=== PATIENT | male | born 2000 | race Caucasian/White ===

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

== ENCOUNTER 2020-08-03 17:51 | Emergency (ER) | payer OTHER ==
[2020-08-03 18:10] VITALS: BP 130/69; PULSE 86; TEMP 97.6; BMI 43.3
== END 2020-08-03 19:45 | disposition home or self-care (01) ==
LOC: JERFT 17:51
DX: S93.402A Sprain of unspecified ligament of left ankle, initial encounter (principal)
CPT/HCPCS: 73610-TC-LT-FY; 99284-25

== ENCOUNTER 2020-11-22 12:24 | Emergency (ER) | payer OTHER ==
[2020-11-22 12:28] VITALS: BP 139/73; PULSE 77; TEMP 97.7; BMI 38.4
== END 2020-11-22 12:58 | disposition home or self-care (01) ==
LOC: JER 12:24
DX: R05 Cough (principal); Z11.52 Encounter for screening for COVID-19
CPT/HCPCS: 87804; 99283-25; C9803; U0003

== ENCOUNTER 2020-11-29 03:08 | Emergency (ER) | payer OTHER ==
[2020-11-29 03:19] VITALS: BP 129/75; PULSE 90; BMI 38.5
[2020-11-29 04:56] LABS: BASO % 0.6 % (0-2.0); EOS % 2.9 % (0-4.5); HEMATOCRIT 44.3 % (35.4-49); HEMOGLOBIN 15.4 GM/dL (11.7-16.9); LYMPH % 20.7 % (8-40); MCH 30.6 pg (25.7-33.7); MCHC 34.7 g/dl (32.0-35.9); MEAN CELL VOLUME 88.2 fl (80-96); MEAN PLT VOLUME 9.9 fl (7.5-11.1); MONO % 7.1 % (3.8-10.2); NEUT % 68.7 % (42.8-82.8); PLATELET COUNT 229 K/MM3 (134-434); RBC 5.02 M/mm3 (4.00-5.60); WHITE BLOOD COUNT 10.3 K/mm3 (4.0-10.0)
[2020-11-29 05:49] LABS: CHLORIDE 105 mmol/L (98-107); POTASSIUM 3.6 mmol/L (3.5-5.1); SODIUM 138 mmol/L (136-145)
[2020-11-29 05:50] LABS: ALBUMIN 3.8 g/dl (3.4-5.0); ANION GAP 8 MMOL/L (8-16); BLOOD UREA NITROGEN 12.5 mg/dL (7-18); CO2 25 mmol/L (21-32); GLUCOSE,RANDOM 105 mg/dL (74-106)
[2020-11-29 05:54] LABS: SGOT/AST 21 U/L (15-37); SGPT/ALT 47 U/L (13-61)
[2020-11-29 05:55] LABS: BILIRUBIN,TOTAL 0.7 mg/dL (0.2-1); CREATININE 1.1 mg/dL (0.55-1.3); TOT PROT 7.3 g/dl (6.4-8.2)
[2020-11-29 05:57] LABS: ALK PHOS 131 U/L (45-117)
== END 2020-11-29 06:22 | disposition home or self-care (01) ==
LOC: JER 03:08
DX: R07.9 Chest pain, unspecified (principal)
CPT/HCPCS: 36415; 71046-TC-FY; 80053; 84484; 85025; 93005; 93010; 99285-25

== ENCOUNTER 2021-04-01 17:56 | Emergency (ER) | payer OTHER ==
[2021-04-01 18:09] VITALS: TEMP 98.8; BMI 38.4
[2021-04-01] MEDS ORDERED: FAMOTIDINE 20 MG/50 ML IVPB 20 MG/50 ML MG IVPB ONE (19:18)
[2021-04-01] MEDS ORDERED: MAG HYDROX/AL HYDROX/SIMETH 30 ML UNIT-DOSE CUP PO ONE (19:18)
[2021-04-01] MEDS ORDERED: SODIUM CHLORIDE 1,000 ML IV STA (19:18)
[2021-04-01] MEDS ORDERED: ACETAMINOPHEN 1000 MG/100 ML VIAL (NON FORMULARY) IVPB ONE (19:18)
[2021-04-01] MEDS ORDERED: ACETAMINOPHEN INJECTION 100 ML IVPB ONE (19:29)
[2021-04-01] MEDS ORDERED: MAG HYDROX/AL HYDROX/SIMETH 30 ML UNIT-DOSE CUP ONE (19:29)
[2021-04-01 20:45] LABS: BASO % 0.4 % (0-2.0); EOS % 0.6 % (0-4.5); HEMATOCRIT 45.3 % (35.4-49); HEMOGLOBIN 15.4 GM/dL (11.7-16.9); LYMPH % 17.5 % (8-40); MCH 29.6 pg (25.7-33.7); MCHC 34.1 g/dl (32.0-35.9); MEAN PLT VOLUME 9.5 fl (7.5-11.1); MONO % 7.3 % (3.8-10.2); NEUT % 74.2 % (42.8-82.8); PLATELET COUNT 272 10^3/uL (134-434); RDW 13.9 % (11.9-15.9); WHITE BLOOD COUNT 13.3 K/mm3 (4.0-10.0)
[2021-04-01 21:06] LABS: CHLORIDE 104 mmol/L (98-107); SODIUM 137 mmol/L (136-145)
[2021-04-01 21:10] LABS: ANION GAP 9 MMOL/L (8-16); BLOOD UREA NITROGEN 14.6 mg/dL (7-18); CALCIUM 9.5 mg/dL (8.5-10.1); CO2 24 mmol/L (21-32); GLUCOSE,RANDOM 78 mg/dL (74-106); LIPASE 42 U/L (73-393)
[2021-04-01 21:13] LABS: SGOT/AST 37 U/L (15-37); SGPT/ALT 53 U/L (13-61)
[2021-04-01 21:15] LABS: BILIRUBIN,TOTAL 0.6 mg/dL (0.2-1)
[2021-04-01 21:16] LABS: ALK PHOS 130 U/L (45-117)
[2021-04-01 22:24] VITALS: BP 111/72; PULSE 68
== END 2021-04-01 22:54 | disposition home or self-care (01) ==
LOC: JER 17:56
PROC: 3E0333Z Introduction of Anti-inflammatory into Peripheral Vein, Percutaneous Approach (ICD-10-PCS; principal; 2021-04-01)
PROC: 3E033GC Introduction of Other Therapeutic Substance into Peripheral Vein, Percutaneous Approach (ICD-10-PCS; 2021-04-01)
PROC: 3E0337Z Introduction of Electrolytic and Water Balance Substance into Peripheral Vein, Percutaneous Approach (ICD-10-PCS; 2021-04-01)
DX: R07.89 Other chest pain (principal)
CPT/HCPCS: 36415; 71046-TC-FY; 74019-TC-FY; 80053; 82550; 82553; 83690; 84484; 85025; 93005; 93010; 99285-25; J0131

== ENCOUNTER 2022-08-05 11:21 | Emergency (ER) | payer OTHER ==
[2022-08-05 11:34] VITALS: BP 126/78; PULSE 82; RESP 20; TEMP 98; BMI 41.1
== END 2022-08-05 12:57 | disposition home or self-care (01) ==
LOC: JERFT 11:21
DX: H00.011 Hordeolum externum right upper eyelid (principal)
CPT/HCPCS: 99283-25

== ENCOUNTER 2022-10-20 20:35 | Emergency (ER) | payer OTHER ==
[2022-10-20 20:41] VITALS: BP 112/84; PULSE 88; RESP 17; TEMP 98.2; BMI 43.0
[2022-10-20 23:47] LABS: THROAT:GRP A STREP NOT DETECTED (NOTDETECTED)
== END 2022-10-20 21:55 | disposition home or self-care (01) ==
LOC: JER 20:35
DX: H66.93 Otitis media, unspecified, bilateral (principal); R07.0 Pain in throat
CPT/HCPCS: 0241U-QW; 87070; 87651; 99283-25

== ENCOUNTER 2022-12-28 14:47 | Emergency (ER) | payer OTHER, BC ==
[2022-12-28 14:51] VITALS: BP 98/70; PULSE 73; RESP 18; TEMP 98; BMI 41.7
== END 2022-12-28 16:53 | disposition home or self-care (01) ==
LOC: JERFT 14:47
DX: G57.12 Meralgia paresthetica, left lower limb (principal); R00.2 Palpitations
CPT/HCPCS: 93970-TC; 99284-25